=== PATIENT | female | born 1980 ===

== ENCOUNTER 2018-11-14 11:14 | Emergency (ER) | payer MEDICAID ==
[2018-11-14] MEDS ORDERED: Clindamycin 600mg/50ml D5W 600 MG/50 ML VIAL IVPB ONE (12:03)
[2018-11-14] MEDS ORDERED: Sodium Chloride 0.9% 1,000 ML IV SCH (12:15)
[2018-11-14 12:28] LABS: BASO # 0.1 K/uL (0.0-0.2); BASO % 0.8 % (0.0-2.0); EOS # 0.2 K/uL (0.0-0.7); EOS % 1.5 % (0.0-4.0); HEMOGLOBIN 12.8 g/dL (12.0-16.0); LYMPH # 1.9 K/uL (1.0-4.3); LYMPH % 17.7 % (20.0-40.0); MEAN CELL VOLUME 86.6 fl (81.0-99.0); MEAN CORPUSCULAR HEMOGLOBIN 29.5 pg (27.0-31.0); MEAN CORPUSCULAR HGB CONC 34.1 g/dL (33.0-37.0); MEAN PLATELET VOLUME 8.4 fl (7.2-11.7); MONO # 1.1 K/uL (0.0-0.8); NEUT # 7.5 K/uL (1.8-7.0); NRBC % 0.1 % (0.0-0.0); RBC 4.35 Mil/uL (3.80-5.20); RED CELL DISTRIBUTION WIDTH 14.2 % (11.5-14.5); WHITE BLOOD COUNT 10.7 K/uL (4.8-10.8)
[2018-11-14 12:41] LABS: ALB/GLOB RATIO 1.1 (1.0-2.1); ALBUMIN 4.1 g/dL (3.5-5.0); ALT/SGPT 34 U/L (9-52); AST/SGOT 32 U/L (14-36); BLOOD UREA NITROGEN 18 mg/dl (7-17); CALCIUM 9.2 mg/dL (8.4-10.2); GFR NON-AFRICAN AMERICAN > 60
--- NOTE | 2018-11-14 13:14 | US ---
Date of service: 11/14/2018 HISTORY: History of mastectomy for years ago. History of silicon injections. TECHNIQUE: Sonographic evaluation of both breast was performed. FINDINGS: LEFT BREAST: No evidence of abscess or drainable fluid collection. No axillary lymphadenopathy identified. IMPRESSION: Status post mastectomy, no evidence of abscess or drainable fluid collection. BIRADS: BIRADS 2 Benign finding Recommendation: Continue annual screening mammography, as per ACR guidelines. Clinical follow-up is advised and further management should be based on the clinical parameters.
--- NOTE | 2018-11-14 14:17 | ED PDOC ---
HPI: General Adult Chief Complaint (Provider): Abnormal Skin Integrity History Per: Patient History/Exam Limitations: no limitations Onset/Duration Of Symptoms: Days (x 3) Current Symptoms Are (Timing): Still Present Recently: Treated By A Physician Additional Complaint(s): 38 year old female presents to the ED for evaluation of possible breast infection associated with fever, pus and drainage. Starting three days ago, the left breast has become increasingly red, swollen and tender with pus and drainage. She has been taking Clindamycin for the last two days, four times a day. Patient is s/p gender reassignment surgery. Three years ago she had a breast infection due to piercing. At that time, she underwent a double mastectomy. Since then, she also had implants placed which then became i nfection, got removed and had another pair of implants placed. Earlier this month, she had a procedure done to correct her left nipple appearance as it "never looked right" to her. Since the procedure she had three office visits with plastic surgeon, Dr. Isaac which is where she was prescribed antibiotics due to nipple from the rest of her breast in addition to the worsening symptoms. Denies anti-pyretic use and other complaints. PMD: none provided <Eleonora Diaz - Last Filed: 11/14/18 14:37> <Jaida Hansen - Last Filed: 11/16/18 12:13> Time Seen by Provider: 11/14/18 11:45 Chief Complaint (Nursing): Abnormal Skin Integrity Past Medical History Reviewed: Historical Data Vital Signs: Last Vital Signs Temp 97.9 F 11/14/18 11:19 Pulse 84 11/14/18 11:19 Resp 18 11/14/18 11:19 BP 150/88 11/14/18 11:19 Pulse Ox 100 11/14/18 11:19 - Medical History PMH: No Chronic Diseases - Surgical History Other surgeries: sex reassignment surgery, multiple breast procedures - Family History Family History: States: Unknown Family Hx <Eleonora Diaz - Last Filed: 11/14/18 14:37> Vital Signs: Last Vital Signs Temp 97.5 F L 11/14/18 14:55 Pulse 78 11/14/18 14:55 Resp 19 11/14/18 14:55 BP 128/76 11/14/18 14:55 Pulse Ox 98 11/14/18 14:55 <Jaida Hansen Christa - Last Filed: 11/16/18 12:13> - Home Medications Home Medications: Ambulatory Orders Medication Instructions Recorded Acetaminophen [Acetaminophen 8 650 mg PO Q8 PRN #21 tablet.er 11/14/18 Hour] Naproxen 500 mg PO BID PRN #20 tab 11/14/18 Ciprofloxacin [Cipro] 500 mg PO BID #20 tab 11/16/18 - Allergies Allergies/Adverse Reactions: Allergies Allergy/AdvReac Type Severity Reaction Status Date / Time No Known Allergies Allergy Verified 11/14/18 12:02 Review of Systems ROS Statement: Except As Marked, All Systems Reviewed And Found Negative Constitutional: Positive for: Fever Respiratory: Positive for: Other (breast drainage, warmth adn erythema) <Eleonora Diaz - Last Filed: 11/14/18 14:37> Physical Exam - Reviewed Nursing Documentation Reviewed: Yes Vital Signs Reviewed: Yes - Physical Exam Comments: GENERAL APPEARANCE: Patient is awake, alert, oriented x 3, in no acute distress. SKIN: Warm, dry; (-) cyanosis. EYES: (-) conjunctival pallor. ENMT: Mucous membranes moist. Airway patent: (-) stridor. Pharynx: (-) swelling, (-) erythema, (-) exudate. NECK: (-) tenderness, (-) stiffness, (-) lymphadenopathy. CHEST AND RESPIRATORY: (-) rhonchi, (-) rales, (-) wheezes, (-) pleural rub; b reath sounds equal bilaterally. HEART AND CARDIOVASCULAR: (-) irregularity; (-) murmur, (-) gallop. BREAST: Diffuse erythema, warmth and tenderness to left breast. Nipple is edematous; (+) nipple discharge; Wound has dehiscent from 12 to 4 oclock position on the nipple with pus and drainage (-) lesions or rashes, (-) palpable mass or cyst, (-) skin changes, , (-) no lymphadenopathy. 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 ABDOMEN AND GI: Soft; (-) tenderness. EXTREMITIES: (-) deformity; (-) edema. NEURO AND PSYCH: Mental status as above. Cranial nerves grossly intact; stren gth symmetric. <Eleonora Diaz - Last Filed: 11/14/18 14:37> - Laboratory Results Result Diagrams: 11/14/18 12:15 11/14/18 12:15 - ECG O2 Sat by Pulse Oximetry: 100 (RA) Pulse Ox Interpretation: Normal <Eloenora Diaz - Last Filed: 11/14/18 14:37> - Laboratory Results Result Diagrams: 11/14/18 12:15 11/14/18 12:15 <Jiada Hansen - Last Filed: 11/16/18 12:13> Medical Decision Making Medical Decision Makin:03 Impression: breast cellulitis rule out abscess; s/p surgical procedure Initial Plan: --CMP --Lactic acid --CBC --Clindamycin 600 mg in NS --NS IV --Toradol 30 mg IVP --Blood cx --Wound cx --Breast US --Consult placed to DR Isaac. Voicemail left. US FINDINGS: LEFT BREAST: No evidence of abscess or drainable fluid collection. No axillary lymphadenopathy identified. IMPRESSION: Status post mastectomy, no evidence of abscess or drainable fluid collection. BIRADS: BIRADS 2 Benign finding Recommendation: Continue annual screening mammography, as per ACR guidelines. Clinical follow-up is advised and further management should be based on the clinical parameters. Labs reviewed and grossly unremarkable. CBC With no leukocytosis. Lactic acid WNL. 1435 Have not received callback from Dr Isaac. On re-evaluation, patient reports improvement of symptoms. On exam, patient remains AAOx3, in no acute distress. Vitals stable. Lab/Diagnostic results d/w the patient in great detail. Diagnosis of cellulitis of breast, wound dehiscence d/w the patient. Based on history, exam and diagnostic results, plan will be for outpatient follow up with plastic surgeon. Patient instructed to follow-up with pmd / referral provided / the clinic in 1- 2 days without fail. Advised to take medication as prescribed from ED visit and to continue Abx(clindamycin) as prescribed from surgeon. Return to the emergency room at any time for any new or worsening symptoms. Patient states she fully agrees with and understands discharge instructions. States that she agrees with the plan and disposition. Verbalized and repeated discharge instructions and plan. I have given the patient opportunity to ask any additional questions. Scribe Attestation: Documented by Jeannine Kelley acting as a scribe for Eleonora Diaz PA-C Provider Scribe Attestation: All medical record entries made by the Scribe were at my direction and personally dictated by me. I have reviewed the chart and agree that the record accurately reflects my personal performance of the history, physical exam, medical decision making, and the department course for this patient. I have also personally directed, reviewed, and agree with the discharge instructions and disposition. <Eleonora Diaz - Last Filed: 11/14/18 14:37> Disposition - Patient ED Disposition Is Patient to be Admitted: No Counseled Patient/Family Regarding: Studies Performed, Diagnosis, Need For Followup, Rx Given - Disposition Disposition: Routine/Home Disposition Time: 14:40 - POA Present On Arrival: Surgical Site Infection <Eleonora Diaz - Last Filed: 11/14/18 14:37> <Jaida Hansen - Last Filed: 11/16/18 12:13> - Clinical Impression Clinical Impression: Cellulitis of left breast, Wound dehiscence - Disposition Referrals: Poncho Cunningham [Other] Marry Fox MD [Medical Doctor] - Condition: STABLE Additional Instructions: The emergency medical care you received today was directed at your acute symptoms. If you were prescribed any medication, please fill it and take as directed. It may take several days for your symptoms to resolve. Return to the Emergency Department if your symptoms worsen, do not improve, or if you have any other problems. Please contact your doctor in 2 days for re-evaluation and follow up / or call one of the physicians/clinics you have been referred to that are listed on the Patient Visit Information form that is included in your discharge packet. Bring any paperwork you were given at discharge with you along with any medications y ou are taking to your follow up visit. Our treatment cannot replace ongoing medical care by a primary care provider (PCP) outside of the emergency department. Prescriptions: Acetaminophen [Acetaminophen 8 Hour] 650 mg PO Q8 PRN #21 tablet.er PRN Reason: Pain, Moderate (4-7) Ciprofloxacin [Cipro] 500 mg PO BID #20 tab Naproxen 500 mg PO BID PRN #20 tab PRN Reason: Pain, Moderate (4-7) Instructions: Wound Dehiscence, Surgical Wound (DC), Wound Care, Cellulitis (Skin Infection), Adult (DC) Forms: [employer] ([place] Islander) Print Language: EGYPTIAN Results - Diagnostic Imaging Results Radiology Results Breast Ultrasound 11/14/18 12:05 IMPRESSION: Status post mastectomy, no evidence of abscess or drainable fluid collection. BIRADS: - Lab Results Lab Results: 11/14/18 11/14/18 11/14/18 12:15 12:15 12:15 WBC 10.7 RBC 4.35 Hgb 12.8 Hct 37.6 MCV 86.6 MCH 29.5 MCHC 34.1 RDW 14.2 Plt Count 316 MPV 8.4 Neut % (Auto) 70.0 Lymph % (Auto) 17.7 L Wilkinson % (Auto) 10.0 Eos % (Auto) 1.5 Baso % (Auto) 0.8 Neut # (Auto) 7.5 H Lymph # (Auto) 1.9 Wilkinson # (Auto) 1.1 H Eos # (Auto) 0.2 Baso # (Auto) 0.1 Sodium 139 Potassium 4.3 Chloride 103 Carbon Dioxide 26 Anion Gap 14 BUN 18 H Creatinine 0.6 L Est GFR ( Amer) > 60 Est GFR (Non-Af Amer) > 60 Random Glucose 106 H Lactic Acid 0.6 L Calcium 9.2 Total Bilirubin 0.5 AST 32 ALT 34 Alkaline Phosphatase 79 Total Protein 7.9 Albumin 4.1 Globulin 3.7 Albumin/Globulin Ratio 1.1 <Eleonora Diaz - Last Filed: 11/14/18 14:37> - Diagnostic Imaging Results Radiology Results Breast Ultrasound 11/14/18 12:05 IMPRESSION: Status post mastectomy, no evidence of abscess or drainable fluid collection. BIRADS: - Lab Results Lab Results: 11/14/18 11/14/18 11/14/18 12:15 12:15 12:15 WBC 10.7 RBC 4.35 Hgb 12.8 Hct 37.6 MCV 86.6 MCH 29.5 MCHC 34.1 RDW 14.2 Plt Count 316 MPV 8.4 Neut % (Auto) 70.0 Lymph % (Auto) 17.7 L Wilkinson % (Auto) 10.0 Eos % (Auto) 1.5 Baso % (Auto) 0.8 Neut # (Auto) 7.5 H Lymph # (Auto) 1.9 Wilkinson # (Auto) 1.1 H Eos # (Auto) 0.2 Baso # (Auto) 0.1 Sodium 139 Potassium 4.3 Chloride 103 Carbon Dioxide 26 Anion Gap 14 BUN 18 H Creatinine 0.6 L Est GFR ( Amer) > 60 Est GFR (Non-Af Amer) > 60 Random Glucose 106 H Lactic Acid 0.6 L Calcium 9.2 Total Bilirubin 0.5 AST 32 ALT 34 Alkaline Phosphatase 79 Total Protein 7.9 Albumin 4.1 Globulin 3.7 Albumin/Globulin Ratio 1.1 <Jaida Hansen - Last Filed: 11/16/18 12:13> Addendum Addendum: 11/16/18 12:12 Pt taking clindamycin for wound infection. Bacteria in wound culture Serratia marcescens which is gram (-). Discussed with patient. Sheri sent to [facility] pharmacy in [place] on [address]. <Jaida Hansen - Last Filed: 11/16/18 12:13>
[2018-11-14 14:56] VITALS: BP 128/76; PULSE 78; RESP 19; TEMP 97.5; O2SAT 98
== END 2018-11-14 14:58 | disposition home or self-care (01) ==
LOC: H.ER 11:14
DX: N61.0 Mastitis without abscess (principal); Z90.12 Acquired absence of left breast and nipple; T81.30XA Disruption of wound, unspecified, initial encounter
CPT/HCPCS: 76641; 80053; 83605; 85025; 87040; 87070; 87181; 96374; 99283; J1885; J7030